=== PATIENT | male | born 1960 | race Caucasian/White ===

== ENCOUNTER 2017-01-22 08:04 | Emergency (ER) | payer OTHER ==
[~2017-01-22] VITALS: Ht 190.5 cm; Wt 76.2 kg
[~2017-01-22 08:04] MED LIST: CYCLOBENZAPRINE5 M2 PO; DICLOFENAC SODI75 M2 PO; FLEXERIL10 MG PO; IBUPROFEN800 MG PO; LIORESAL 10MG T10 MG PO; MOBIC 15MG15 MG PO; MOBIC15 M1 PO; MOBIC15 MG PO; MOTRIN600 MG PO; NAPROSYN375 MG PO; NAPROXEN500 MG PO; NORCO 325 MG-51 TAB PO; NORFLEX100 MG PO; ORPHENADRINE C100 MG PO; OXYCODONE5 M1 PO; PERCOCET 325 MG1 TA2 PO; SOMA 350MG TAB350 MG PO; TORADOL10 MG PO; TRAMADOL HCL50 M1 PO; TRAMADOL50 MG PO; TYLENOL #31 TAB PO; VICODIN5-300 PO; VOLTAREN 25MG T25 MG PO
[2017-01-22 08:09] VITALS: BP 121/78
--- NOTE | 2017-01-22 08:25 | ED UPPER/LOWER EXTREMITY COMPL ---
History of Present Illness General Chief Complaint: Lower Extremity Injury Stated Complaint: INJURY TO R KNEE Source: patient, old records Exam Limitations: no limitations Vital Signs & Intake/Output Vital Signs & Intake/Output Vital Signs Date Time Temp Pulse Resp B/P Pulse O2 O2 Flow FiO2 Ox Delivery Rate 01/22 0809 97.9 94 18 121/78 96 Room Air Allergies Coded Allergies: NO KNOWN ALLERGIES (12/16/15) Reconcile Medications Cyclobenzaprine HCl 5 MG TABLET 1 TAB PO TIDPRN PRN PAIN Diclofenac Sodium (Voltaren 25MG Tab) 25 MG TAB 1 TAB PO TID PRN KNEE PAIN Meloxicam (Mobic) 15 MG TABLET 1 TAB PO DAILY PRN PAIN/INFLAMMATION Meloxicam (Mobic) 15 MG TABLET 1 TAB PO DAILY PRN PAIN/INFLAMMATION Orphenadrine Citrate 100 MG TABLET.ER 1 TAB PO BIDP PRN muscle spasms Tramadol HCl 50 MG TABLET 1-2 TAB PO Q6P PRN pain Tramadol HCl 50 MG TABLET 1 TAB PO TID PRN PAIN Tramadol HCl 50 MG TABLET 1 TAB PO Q6 PRN pain Triage Note: C/O R KNEE PAIN, S/P FALL ON ICE YESTERDAY. STATES HE USUALLY TAKES TRAMADOL FOR ARTHRITIS PAIN IN SAME KNEE, BUT RAN OUT OF IT. Triage Nurses Notes Reviewed? yes HPI: Patient is a 56-year-old male presents complaining of right knee pain. Patient reports he has a history of chronic knee pain secondary to arthritis, was walking downstairs yesterday and slipped twisting his right knee. Patient has been taking aspirin without improvement. Pain is moderate at rest, severe with ambulation. Patient has been ambulating since the injury. Patient denies head injury, neck pain, decreased range of motion Past History Travel History Traveled to [place] past 21 day No Medical History Any Pertinent Medical History? 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 No Review of Systems Review of Systems Constitutional: Reports: no symptoms. Denies: chills, fever. EENTM: Reports: no symptoms. Respiratory: Reports: no symptoms. Cardiovascular: Reports: no symptoms. Gastrointestinal/Abdominal: Reports: no symptoms. Genitourinary: Reports: no symptoms. Musculoskeletal: Reports: see HPI. Skin: Reports: no symptoms. Denies: erythema, rash. Neurological/Psychological: Reports: no symptoms. Denies: numbness, paresthesia. Hematologic/Endocrine: Reports: no symptoms. Denies: bruising, bleeding. Immunological: Reports: no symptoms. Physical Exam Physical Exam General Appearance: alert, awake Head: atraumatic, normal appearance Eyes: Bilateral: normal appearance. Ears, Nose, Throat: hearing grossly normal Neck: normal inspection, supple, full range of motion Cardiovascular/Respiratory: no respiratory distress Peripheral Pulses: 2+ popliteal (R) Back: normal inspection, normal range of motion Knee Right: tenderness medial to the patella. No patellar tenderness. Full range of motion. Joint stable. Negative Britton's test. Negative varus or valgus stress test. Neurologic/Tendon: normal sensation, normal motor functions, normal tendon functions Skin: intact, normal color, warm/dry Progress Differential Diagnosis: contusion, dislocation, gout, sprain, arthritis, septic joint Plan of Care: X-rays deferred secondary to autoimmune knee rules. No signs of infectious etiology. Departure Departure Time of Disposition: 836 Disposition: HOME OR SELF CARE Condition: Stable Clinical Impression Primary Impression: Chronic pain of right knee Referrals: SARA ASHLEY DO (PCP/Family) Additional Instructions: Follow-up with your primary doctor for further evaluation and management. Rest, elevate, ice for 20 minutes 4-5 times a day. Return to the emergency department if worsening of symptoms. Departure Forms: Customer Survey General Discharge Information Prescriptions: Current Visit Scripts Meloxicam (Mobic) 1 TAB PO DAILY PRN PAIN/INFLAMMATION #10 TAB Tramadol HCl 1 TAB PO Q6 PRN pain #10 TAB
[2017-01-22] MEDS ORDERED: TRAMADOL HCL50 M1 PO (08:38)
[2017-01-22] MEDS ORDERED: MOBIC15 M1 PO (08:38)
== END 2017-01-22 08:53 ==
LOC: ERH 08:04
DX: G89.29 Other chronic pain (principal); M25.561 Pain in right knee